=== PATIENT | female | born 1955 | race Caucasian/White ===

== ENCOUNTER → 2021-08-24 | Outpatient (CLI) | payer BC, MEDICARE ==
--- NOTE | 2021-08-26 20:07 | PE ---
EXAMINATION TYPE: PET CT brain metabolic evaluation DATE OF EXAM: 08/24/2021 COMPARISON: NONE HISTORY: Alzheimer's dementia. Memory loss for less than one year TECHNIQUE: Following the intravenous administration of 9.13 mCi of F-18 FDG, image are performed of the entire brain. Images are reviewed on the computer in the coronal, axial, and sagittal planes. Reconstructed rotating images are created on independent workstation and reviewed on the computer. A localization and attenuation correction CT is performed in conjunction with the PET scan. Blood glucose level equals 82. SCAN: Initial Scan FINDINGS: Brain: No suspicious diminished radiotracer uptake in the parietal temporal lobes to suggest Alzheimer's disease. Symmetric satisfactory uptake noted throughout the entire brain parenchyma. OTHER CT: Brain volume is satisfactory. No hydrocephalus. IMPRESSION: As above. MTDD
== END | disposition home or self-care (01) ==
LOC: RADPETMAIN 12:04
PROVIDERS: ATTEND Family Medicine
DX: R41.3 Other amnesia (principal)
CPT/HCPCS: 78608; 78816